=== PATIENT | male | born 2000 | race Caucasian/White ===

== ENCOUNTER 2024-02-20 23:20 | Emergency (ER) | payer OTHER ==
[~2024-02-20] VITALS: Ht 175.3 cm; Wt 75.0 kg
[2024-02-20 23:27] VITALS: TEMP 97.7
[2024-02-21 07:39] VITALS: BP 115/69; PULSE 92
[2024-04-15 09:53] LABS: COLLECTION METHOD CLEAN CATCH
[2024-04-15 11:57] LABS: HEMATOCRIT 48.6 % (42.0-52.0); MEAN CELL VOLUME 92 fl (80.0-100.0); MEAN CORPUSCULAR HEMOGLOBIN 32 pg (27-31); MEAN CORPUSCULAR HGB CONC 35 g/dl (33.0-37.0); REDCELL DISTRIBUTION WIDTH-CV 12.1 % (11.5-14.5)
[2024-04-15 11:58] LABS: BASO % 0.8 % (0.0-2.0); EOS % 0.2 % (0.0-4.0); GRAN % 56.7 % (42.2-75.2); LYMPH # 3.8 K/mm3 (1.2-3.4); LYMPH % 35.6 % (20.0-51.0); MONO # 0.7 K/mm3 (0.1-0.6); MONO % 6.3 % (1.7-9.3); PLATELET COUNT 298 K/mm3 (130-400)
[2024-04-15 11:59] LABS: BASO # 0.1 K/mm3 (0.0-0.2)
[2024-04-15 12:04] LABS: TRICYCLIC ANTIDEPRESS URINE NEGATIVE (NEGATIVE)
[2024-04-15 12:06] LABS: URINE APPEARANCE Clear (CLEAR/HAZY); URINE BLOOD Negative (NEGATIVE); URINE COLOR Yellow (YELLOW); URINE GLUCOSE Negative (NEGATIVE); URINE KETONE Negative (NEGATIVE); URINE NITRATE Negative (NEGATIVE); URINE PROTEIN(semi-quant) Negative (NEGATIVE); URINE UROBILINOGEN 0.2 E.U/dL (0.2-1.0)
[2024-04-15 12:07] LABS: BLOOD UREA NITROGEN 16 mg/dL (9-21); GLUCOSE 119 mg/dL (70-99)
[2024-04-15 12:08] LABS: ALBUMIN 4.4 g/dL (3.5-5.0); AST,SGOT 25 U/L (5-34); BILIRUBIN,TOTAL 0.5 mg/dL (0.2-1.2); CALCIUM 9.8 mg/dL (8.4-10.2); CHLORIDE 109 mEq/L (98-107); CREATININE, serum 1.33 mg/dL (0.72-1.25); POTASSIUM 3.4 mEq/L (3.5-4.5); SODIUM 143 mEq/L (136-145); TOTAL PROTEIN 7.7 g/dl (6.2-8.1)
[2024-04-15 12:09] LABS: ALANINE AMINOTRANSFERASE 13 U/L (0-55); ALCOHOL(ethanol),MEDICAL 168 mg/dL (0-10); ALKALINE PHOSPHATASE 71 U/L (40-150); SALICYLATE < 5.0 mg/dL (15.0-30.0)
== END 2024-02-21 07:39 | disposition home or self-care (01) ==
LOC: COL.ER 23:20
PROVIDERS: Emergency Medicine
DX: R45.851 Suicidal ideations (principal); F10.129 Alcohol abuse with intoxication, unspecified; Y90.6 Blood alcohol level of 120-199 mg/100 ml